=== PATIENT | male | born 1950 | race Caucasian/White ===

== ENCOUNTER 2023-07-12 15:08 | Emergency (ER) | payer OTHER, MEDICARE ==
[2023-07-12 15:17] VITALS: BP 139/74; PULSE 73
[2023-07-12] MEDS: Acetaminophen/HYDROcodone 325-10 MG Tab PO ONE (15:22)
[2023-07-12] MEDS: Ketorolac 30 MG/ML SDV IM ONE (16:18)
== END 2023-07-12 16:39 | disposition home or self-care (01) ==
LOC: VM.ED 15:08
DX: S13.4XXA Sprain of ligaments of cervical spine, initial encounter (principal); I10 Essential (primary) hypertension; Z91.030 Bee allergy status; Z88.0 Allergy status to penicillin; Z79.899 Other long term (current) drug therapy; X50.0XXA Overexertion from strenuous movement or load, initial encounter
CPT/HCPCS: 72125; 96372; 99283; A9270-GY; J1885